=== PATIENT | female | born 1980 | race Caucasian/White ===

== ENCOUNTER 2020-05-16 13:55 | Emergency (ER) | payer OTHER ==
[2020-05-16 16:14] LABS: BILIRUBIN NEGATIVE (NEGATIVE); BLOOD TRACE-INTACT Ery/uL (NEGATIVE); CLARITY CLEAR (CLEAR); COLOR YELLOW (YELLOW); GLUCOSE (U) NORMAL (NORMAL); LEUKOCYTES NEGATIVE Leu/uL (NEGATIVE); NITRITE NEGATIVE (NEGATIVE); PROTEIN NEGATIVE (NEGATIVE); UROBILINOGEN 0.2 mg/dL (0.2-1.0); pH 6.5 (5.0-9.0)
[2020-05-16 16:24] LABS: MARIJUANA (THC) NEGATIVE (NEGATIVE)
[2020-05-16 16:25] LABS: AMPHETAMINES NEGATIVE (NEGATIVE); BARBITURATES NEGATIVE (NEGATIVE); ECSTASY (MDMA) NEGATIVE (NEGATIVE); METHADONE NEGATIVE (NEGATIVE); OPIATES NEGATIVE (NEGATIVE); OXYCODONE NEGATIVE (NEGATIVE)
[2020-05-16 16:25] LABS: BACTERIA TRACE; SQUAMOUS EPITHELIAL CELLS RARE; URINARY RBC RARE; URINARY WBC RARE
[2020-05-16 16:41] LABS: BASOPHIL 0.8 % (0-2); EOSINOPHIL 0.3 % (0-5); HGB 13.2 g/dl (12.5-16.0); LYMPHOCYTE 10.4 % (15-48); MCH 30.8 pg (25.0-31.0); MCV 93.2 fL (78.0-100.0); MONOCYTE 3.9 % (0-12); MPV 9.5 fL (6.0-9.5); NEUTROPHIL 84.4 % (41-80); NRBC 0; PLT 187 K/uL (150-400); RBC 4.29 M/uL (4.20-5.40); RDW 11.8 % (11.5-14.0); WBC 10.6 K/uL (4.0-10.5)
[2020-05-16 16:52] LABS: ALBUMIN 3.6 g/dL (3.4-5.0); ALKALINE PHOSHATASE 85 U/L (46-116); ALT 28 U/L (14-59); AST 24 U/L (15-37); BILIRUBIN - TOTAL 0.2 mg/dL (0.2-1.0); BUN 11 mg/dL (7-18); BUN/CREAT RATIO (CALC) 19.6 RATIO; CHLORIDE 103 mmol/L (98-107); CO2 (BICARBONATE) 30 mmol/L (21-32); CREATININE 0.56 mg/dL (0.51-0.95); GLOBULIN (CALCULATION) 3.9 g/dL; GLUCOSE 105 mg/dL (74-106); TOTAL PROTEIN 7.5 g/dL (6.4-8.2)
== END 2020-05-16 17:35 | disposition home or self-care (01) ==
LOC: FER 13:55
PROVIDERS: Emergency Medicine
DX: R55 Syncope and collapse (principal); R42 Dizziness and giddiness; R11.0 Nausea
CPT/HCPCS: 36415; 71045; 80053; 80305; 81001; 84484; 85025; 93005; G0480